=== PATIENT | male | born 1955 | race Caucasian/White ===

== ENCOUNTER 2019-04-24 14:53 | Emergency (ER) | payer MEDICARE, MEDICAID ==
[~2019-04-24] VITALS: Ht 185.4 cm; Wt 106.8 kg
[~2019-04-24 14:53] MED LIST: HYDR-4383 PO; NO HOME MEDS; lidocaine 1%/epinephrine 1:100,000 injection 50ml vial ONE
[2019-04-24 14:58] VITALS: BP 116/79
--- NOTE | 2019-04-24 15:10 | NUR ---
pt is 63 yo male c/o lac to rt 3rd digit, cut with reciprocating saw at approx 1430, dressing in place is dry and intact, no bleeding, pt is waiting to be evaluated by provider.
== END 2019-04-24 16:00 | disposition home or self-care (01) ==
LOC: ER 14:53
DX: S68.123A Partial traumatic metacarpophalangeal amputation of left middle finger, initial encounter (principal); I25.2 Old myocardial infarction; K21.9 Gastro-esophageal reflux disease without esophagitis; E11.9 Type 2 diabetes mellitus without complications; F20.9 Schizophrenia, unspecified; F12.90 Cannabis use, unspecified, uncomplicated; F15.90 Other stimulant use, unspecified, uncomplicated; Z88.8 Allergy status to other drugs, medicaments and biological substances; Z79.899 Other long term (current) drug therapy; Z90.49 Acquired absence of other specified parts of digestive tract; Z98.890 Other specified postprocedural states; W26.8XXA Contact with other sharp object(s), not elsewhere classified, initial encounter; Y93.89 Activity, other specified; Y92.89 Other specified places as the place of occurrence of the external cause; Y99.8 Other external cause status
CPT/HCPCS: 99281; 99282

== ENCOUNTER 2020-10-29 05:16 | Day surgery (SDC) | payer MEDICARE, MEDICAID ==
[2020-10-22 12:27] LABS: BASOPHILS % (AUTO) 0.7 % (0-1); EOSINOPHILS # (AUTO) 0.3 X10'3 (0-0.9); LYMPHOCYTES # (AUTO) 0.8 X10'3 (1.1-4.8); LYMPHOCYTES % (AUTO) 13.7 % (21-51); MEAN CORPUSCULAR HEMOGLOBIN 25.1 PG (27.0-31.0); MEAN CORPUSCULAR HGB CONC 32.1 g/dL (33.0-36.5); MEAN CORPUSCULAR VOLUME 78.2 FL (78-98); MEAN PLATELET VOLUME 9.9 FL (7.4-10.4); MONOCYTES # (AUTO) 0.4 X10'3 (0-0.9); MONOCYTES % (AUTO) 6.3 % (2-12); NEUTROPHILS # (AUTO) 4.4 X10'3 (1.8-7.7); NEUTROPHILS % (AUTO) 74.3 % (42-75); PRE OP HEMATOCRIT 36.2 % (42.0-52.0); PRE OP HEMOGLOBIN 11.6 g/dL (14.0-17.9); PRE OP PLATELET COUNT 160 X10'3 (140-440); RED BLOOD COUNT 4.64 X10'6 (4.70-6.10); RED CELL DISTRIBUTION WIDTH 16.7 % (11.5-14.5)
[2020-10-22 12:40] LABS: ALBUMIN 3.3 G/DL (3.4-5.0); ALBUMIN/GLOBULIN RATIO 0.9 (1.1-1.5); ALKALINE PHOSPHATASE 113 IU/L (46-116); BLOOD UREA NITROGEN 12 MG/DL (7-18); BUN/CREATININE RATIO 12.9 (5.4-32.0); CALCIUM 8.7 MG/DL (8.5-10.1); CHLORIDE 102 MMOL/L (99-107); CREATININE 0.93 MG/DL (0.60-1.10); PRE OP ALT 49 U/L (30-65); PRE OP ANION GAP 8 (8-16); PRE OP AST 31 U/L (10-37); PRE OP BILIRUB, TOTAL 0.2 MG/DL (0.0-1.0); PRE OP POTASSIUM 4.1 MMOL/L (3.4-5.1); PRE OP SODIUM 138 MMOL/L (135-145); TOTAL PROTEIN 6.8 G/DL (6.4-8.2); eGFR 82 ML/MIN
[2020-10-22 12:42] LABS: PRE OP GLUCOSE 226 MG/DL (70-104)
[2020-10-29] VITALS (15 sets, daily range): BP systolic 134–149; BP diastolic 62–84
[~2020-10-29] VITALS: Ht 185.4 cm; Wt 124.4 kg
[~2020-10-29 05:16] MED LIST changes: +ALBU18HF2 PO; +ARIP10TA17 PO; +CETI10TA14 PO; +CYCL-1 PO; +GLIM2TAB6 PO; -HYDR-4383 PO; +LISI-604 PO; +METF-438 PO; -NO HOME MEDS; +OMEP-50 PO; -lidocaine 1%/epinephrine 1:100,000 injection 50ml vial ONE; +ringers solution, lacted 1,000 ML IV SCH
[2020-10-29] MEDS ORDERED: ceFAZolin inj. 3,000 MG in normal saline 100ml IV soln 100 ML IV ONE (05:30)
[2020-10-29] MEDS ORDERED: famotidine 20mg tablet PO ONE (05:30)
[2020-10-29] MEDS ORDERED: LIDOcaine 1% (10mg/ml) 2ml vial ONE (06:02)
[2020-10-29] MEDS ORDERED: LIDOcaine 1% 30ml preserv. free vial ONE (06:52)
[2020-10-29] MEDS ORDERED: BUPIVAcaine/PF 2.5mg/ml (0.25%) 10ml vial ONE (06:52)
[2020-10-29] MEDS ORDERED: BUPIVACAINE liposomal/PF 13.3 MG/ML vial IM ONE ×2 (06:53→08:15)
[2020-10-29] MEDS ORDERED: BUPIVAcaine/PF 2.5 mg/ml (0.25%) 30ml vial ONE (06:53)
[2020-10-29] MEDS ORDERED: ipratropium/albuterol 3ml nebule NEB STA (06:58)
[2020-10-29] MEDS ORDERED: HYDROmorphone/PF 0.2 MG/ML SYRINGE IV PRN ×2 (07:00)
[2020-10-29] MEDS ORDERED: morphine 2 MG/ML inj. syringe IV PRN (07:00)
[2020-10-29] MEDS ORDERED: ondansetron/PF 4mg/2ml inj IV PRN (07:00)
[2020-10-29] MEDS ORDERED: labetalol 20mg/4ml (5mg/ml) syringe IV PRN (07:00)
[2020-10-29] MEDS ORDERED: hydrALAZINE 20mg/ml inj. IV PRN (07:00)
[2020-10-29] MEDS ORDERED: acetaminophen 1,000mg/100ml IV 100 ML IV PRN (07:00)
[2020-10-29] MEDS ORDERED: proCHLORperazine 10 MG/2 ml inj IV PRN (07:00)
[2020-10-29] MEDS ORDERED: meperidine/PF 25mg/ml syringe IV PRN (07:00)
[2020-10-29] MEDS ORDERED: ringers solution, lacted 1,000 ML IV SCH (07:00)
[2020-10-29] MEDS ORDERED: fentaNYL /PF 50mcg/ml 5ml ampule ONE (07:18)
[2020-10-29] MEDS ORDERED: midazolam 2 mg/2 ml injection ONE (07:18)
[2020-10-29] MEDS ORDERED: sevoflurane 250ml liquid IH ONE (07:37)
[2020-10-29] MEDS ORDERED: phenylephrine 10mg/ml inj. ONE ×2 (07:37→09:32)
[2020-10-29] MEDS ORDERED: ALBUTEROL INHALER 1 PUFF/90 MCG INHALER IH ONE (07:37)
[2020-10-29] MEDS ORDERED: hydrALAZINE 20mg/ml inj. IV ONE (08:11)
[2020-10-29] MEDS ORDERED: propofol inj 20 ML IV ONE (08:11)
[2020-10-29] MEDS ORDERED: rocuronium 10mg/ml inj IV ONE ×3 (08:11→09:45)
[2020-10-29] MEDS ORDERED: LIDOcaine 2% (20mg/ml) 5ml vial ONE (08:11)
[2020-10-29] MEDS ORDERED: BUPIVAcaine/PF 2.5mg/ml (0.25%) 10ml vial IJ ONE (08:14)
[2020-10-29] MEDS ORDERED: LIDOcaine 1% 30ml preserv. free vial IJ ONE (08:16)
[2020-10-29] MEDS ORDERED: BUPIVAcaine/PF 2.5 mg/ml (0.25%) 30ml vial IJ ONE (08:16)
[2020-10-29] MEDS ORDERED: 0.9 % SODIUM CHLORIDE 10 ML VIAL ONE ×2 (09:21)
[2020-10-29] MEDS ORDERED: sugammadex 200mg/2ml injection IV ONE (09:32)
[2020-10-29] MEDS ORDERED: dexamethasone sod phosphate 4mg/ml inj. ONE (09:45)
[2020-10-29] MEDS ORDERED: ondansetron/PF 4mg/2ml inj ONE (09:45)
--- NOTE | 2020-10-29 10:05 | NUR ---
ADMITTED TO PACU FROM OR ACCOMPANIED BY ANESTHESIA. INTIAL PHYSICAL ASSESSMENT DONE AND RECORDED. REPORT RECEIVED FROM ANESTHESIA. RESPIRATORY EFFORT IS MARGINAL, WHEEZING BREATHING TREAT GIVEN VIA MASK ALONG WITH INHALER PER PATIENT REQUEST.
[2020-10-29] MEDS: morphine 4 MG/ML inj SYRINge IV PRN ×2 (10:14→10:44)
[2020-10-29] MEDS ORDERED: ipratropium/albuterol 3ml nebule ONE (10:19)
[2020-10-29] MEDS ORDERED: oxyCODONE/APAP 10/325mg tablet PO ONE ×2 (10:20→11:55)
[2020-10-29] MEDS ORDERED: oxyCODONE/APAP 10/325mg tablet PO PRN (10:20)
--- NOTE | 2020-10-29 10:45 | NUR ---
DR MERRITT NOTIFIED RE ETCO2 50, O2 SAT 93% ON 3L/NASAL CANNULA RR 27. ORDERS RECEIVED.
[2020-10-29] MEDS ORDERED: furosemide 40mg/4ml inj IV ONE (11:10)
--- NOTE | 2020-10-29 11:44 | NUR ---
GOOD DIURESIS WITH LASIX LIGHT YELLOW URINE 300CC CLEAR YELLOW URINE STILL VOIDING. ETCO2 46 BP 142/81 RR16
--- NOTE | 2020-10-29 12:05 | NUR ---
DISCHARGE CRITERIA MET, DISCHARGE INSTRUCTIONS GIVEN, DEMONSTRATES VERBAL UNDERSTANDING. DISCHARGED HOME IN GOOD CONDITION. ETCO2 44 RR 18 SAO2 RM AIR 96. PRODUCTIVE COUGH CLEAR SPUTUM STABLE FOR DISCHARGE
== END 2020-10-29 12:30 | disposition home or self-care (01) ==
LOC: PAS 05:16
PROVIDERS: ATTEND Surgery
DX: K43.0 Incisional hernia with obstruction, without gangrene (principal); Z20.822 Contact with and (suspected) exposure to COVID-19; K21.9 Gastro-esophageal reflux disease without esophagitis; I25.2 Old myocardial infarction; E11.9 Type 2 diabetes mellitus without complications; F20.9 Schizophrenia, unspecified; M19.90 Unspecified osteoarthritis, unspecified site; J44.9 Chronic obstructive pulmonary disease, unspecified; I25.10 Atherosclerotic heart disease of native coronary artery without angina pectoris; G40.909 Epilepsy, unspecified, not intractable, without status epilepticus; E66.9 Obesity, unspecified; Z68.36 Body mass index [BMI] 36.0-36.9, adult; Z87.442 Personal history of urinary calculi; Z87.891 Personal history of nicotine dependence; Z86.19 Personal history of other infectious and parasitic diseases; Z88.8 Allergy status to other drugs, medicaments and biological substances; Z96.653 Presence of artificial knee joint, bilateral; Z98.890 Other specified postprocedural states; Z79.899 Other long term (current) drug therapy; Z79.84 Long term (current) use of oral hypoglycemic drugs
CPT/HCPCS: 36415; 49657; 64488; 71045; 71046; 80053; 82948; 85025; 87635; 94640; 94760; C1781; C9290; C9399; J0131; J0360; J0690; J1100; J1940; J2001; J2250; J2270; J2370; J2405; J2704; J3010; J3490; A4215; A4618; A6253; J7120

== ENCOUNTER 2020-12-25 10:09 | Emergency (ER) | payer MEDICARE, MEDICAID ==
[~2020-12-25] VITALS: Ht 185.4 cm; Wt 121.0 kg
[~2020-12-25 10:09] MED LIST changes: -LISI-604 PO; +LISI-790 PO; -ringers solution, lacted 1,000 ML IV SCH
[2020-12-25 10:11] VITALS: BP 129/75
== END 2020-12-25 13:26 | disposition home or self-care (01) ==
LOC: ER 10:10
DX: T14.8XXA Other injury of unspecified body region, initial encounter (principal); K43.0 Incisional hernia with obstruction, without gangrene; I25.2 Old myocardial infarction; K21.9 Gastro-esophageal reflux disease without esophagitis; E11.9 Type 2 diabetes mellitus without complications; F20.9 Schizophrenia, unspecified; F12.90 Cannabis use, unspecified, uncomplicated; F15.90 Other stimulant use, unspecified, uncomplicated; Z86.69 Personal history of other diseases of the nervous system and sense organs; Z86.19 Personal history of other infectious and parasitic diseases; Z90.89 Acquired absence of other organs; Z98.890 Other specified postprocedural states; Z72.89 Other problems related to lifestyle; Z88.8 Allergy status to other drugs, medicaments and biological substances; Z79.899 Other long term (current) drug therapy; X58.XXXA Exposure to other specified factors, initial encounter; Y93.89 Activity, other specified; Y92.89 Other specified places as the place of occurrence of the external cause; Y99.8 Other external cause status
CPT/HCPCS: 76705; 99284